=== PATIENT | male | born 1945 | race Caucasian/White ===

== ENCOUNTER 2020-04-18 07:55 | Outpatient (REF) | payer MEDICARE, SELFPAY | END 2020-04-18 07:56 | disposition home or self-care (01) | LOC: HO.BBR 07:55 | PROVIDERS: Visit Provider Internal Medicine | DX: Z13.89 Encounter for screening for other disorder (principal) ==

== ENCOUNTER 2020-10-27 08:05 | Outpatient (REF) | payer MEDICARE, SELFPAY | END 2020-10-27 08:06 | disposition home or self-care (01) | LOC: HO.BBR 08:05 | PROVIDERS: Visit Provider Internal Medicine | DX: Z13.89 Encounter for screening for other disorder (principal) ==